=== PATIENT | female | born 1970 | race Two or more races ===

== ENCOUNTER 2017-12-17 20:56 | Emergency (ER) | payer SELFPAY ==
[~2017-12-17] VITALS: Ht 152.4 cm; Wt 67.1 kg
[2017-12-17] MEDS ORDERED: METFORMIN HCL1000 M1 ORAL (21:09)
[2017-12-17] MEDS ORDERED: LANTUS SOL100 UNIT/1 SUBQ (21:09)
[2017-12-17] MEDS ORDERED: VALTREX1000 MG PO (21:47)
[2017-12-17] MEDS ORDERED: IBUPROFEN600 MG ORAL (21:48)
[2017-12-17] MEDS ORDERED: NORCO 5-325 TA1 EACH ORAL (21:48)
--- NOTE | 2017-12-17 21:51 | Emergency Room Report ---
History of Present Illness General Chief Complaint: Skin Rash/Abscess Source: Patient Present Illness HPI 47-year-old female with history of diabetes presents with right lower quadrant and right flank rash for 3 days Red, painful, no fever, no intra-abdominal pain, no vomiting, no fevers, no diarrhea, no urinary symptoms, no relief with [id number] meds Allergies: Coded Allergies: No Known Allergies (Unverified , 12/17/17) Patient History Past Medical History: see triage record Now: No Reviewed Nursing Documentation: PMH: Agreed; PSxH: Agreed Nursing Documentation-PMH Hx Hypertension: Yes Hx Diabetes: Yes Review of Systems All Other Systems: negative except mentioned in HPI Physical Exam Vital Signs Date Time Temp Pulse Resp B/P (MAP) Pulse Ox O2 Delivery O2 Flow Rate FiO2 12/17/17 21:05 98.3 90 14 173/87 95 Room Air 98.2 Sp02 EP Interpretation: reviewed, normal General Appearance: no apparent distress, alert, non-toxic Head: normocephalic Eyes: bilateral eye normal inspection, bilateral eye PERRL, bilateral eye EOMI ENT: normal ENT inspection, hearing grossly normal, normal pharynx, no angioedema, normal voice, moist mucus membranes Neck: normal inspection, full range of motion, supple, supple/symm/no masses Respiratory: chest non-tender, lungs clear, normal breath sounds, chest symmetrical, palpation of chest normal Cardiovascular #1: normal peripheral pulses, regular rate, rhythm Cardiovascular #2: 2+ radial (R), 2+ radial (L) Gastrointestinal: normal inspection, non tender, soft, no mass, no guarding, no rebound Rectal: deferred Genitourinary: normal inspection, no CVA tenderness Musculoskeletal: back normal, gait/station normal, normal range of motion, non- tender, no calf tenderness Neurologic: alert, responsive, mechanical car checker III-XII nml as tested, motor strength/tone normal, sensory intact, speech normal Psychiatric: judgement/insight normal, memory normal, mood/affect normal Skin: normal color, warm/dry, normal turgor, rash - Right L2 distribution shingles rash with erythema multiple vesicles, no confluence Lymphatic: no adenopathy Medical Decision Making Diagnostic Impression: Primary Impression: Shingles ER Course Patient will be given Valtrex, analgesics, information printed in [facility], follow-up with PMD Last Vital Signs Date Time Temp Pulse Resp B/P (MAP) Pulse Ox O2 Delivery O2 Flow Rate FiO2 12/17/17 21:05 98.3 90 14 173/87 95 Room Air 98.2 Disposition: HOME, SELF-CARE Condition: Stable Scripts Hydrocodone Bit/Acetaminophen 5-325* (NORCO 5-325*) 1 Each Tablet 1 TAB ORAL Q12HR PRN for For Pain, #8 TAB 0 Refills Prov: ARELY VICENTE M.D 12/17/17 Ibuprofen* (MOTRIN*) 600 Mg Tablet 600 MG ORAL THREE TIMES A DAY, #20 TAB 0 Refills Prov: ARELY VICENTE M.D 12/17/17 Valacyclovir Hcl (VALTREX) 1,000 Mg Tablet 1000 MG PO TID for 7 Days, TAB Prov: ARELY VICENTE M.D 12/17/17 Patient Instructions: Jorgegljhony, [id number] ARELY VICENTE M.D December 17, 2017 21:51
[2017-12-17 22:18] VITALS: BP 173/87
== END 2017-12-17 22:09 | disposition home or self-care (01) ==
LOC: EMR 21:44
DX: B02.9 Zoster without complications (principal); I10 Essential (primary) hypertension; E11.9 Type 2 diabetes mellitus without complications
CPT/HCPCS: 99284